=== PATIENT | male | born 1965 | race Caucasian/White ===

== ENCOUNTER 2023-09-15 11:15 | Inpatient (IN) | payer OTHER ==
[2023-09-15 11:58] VITALS: BMI 27.3
[2023-09-15] MEDS ORDERED: LOPERAMIDE HCL 2 MG CAPSULE PO ONE (12:44)
[2023-09-15] MEDS ORDERED: LOPERAMIDE HCL 2 MG CAPSULE ONE (13:02)
[2023-09-16] MEDS ORDERED: IBUPROFEN 600 MG TABLET (FP) PO PRN (01:07)
[2023-09-16] MEDS ORDERED: MAG HYDROX/AL HYDROX/SIMETH 30 ML UNIT-DOSE CUP PO PRN (01:07)
[2023-09-16] MEDS ORDERED: guaiFENesin 600 MG TABLET.ER (FP) PO PRN (01:07)
[2023-09-16] MEDS ORDERED: METHOCARBAMOL 500 MG TABLET PO PRN (01:07)
[2023-09-16] MEDS ORDERED: MAGNESIUM HYDROX 2400MG/30ML ORAL SUSPENSION 30 ML CUP PO PRN (01:07)
[2023-09-16] MEDS ORDERED: DICYCLOMINE HCL 10 MG CAPSULE PO PRN (01:07)
[2023-09-16] MEDS ORDERED: BENZONATATE 200 MG CAPSULE PO PRN (01:07)
[2023-09-16] MEDS ORDERED: ONDANSETRON *ODT* 4 MG TABLET SL PRN (01:07)
[2023-09-16] MEDS ORDERED: NALOXONE HCL (KLOXXADO) 8 MG SPRAY NS PRN (01:07)
[2023-09-16] MEDS ORDERED: POLYETHYLENE GLYCOL (HEALTHYLAX) 3350 17 GM PACKET PO PRN (01:07)
[2023-09-16] MEDS ORDERED: BISMUTH SUBSALICYLATE 524 MG/30 ML PO PRN (01:07)
[2023-09-16] MEDS ORDERED: LOPERAMIDE HCL 2 MG CAPSULE PO PRN (01:07)
[2023-09-16] MEDS ORDERED: BENZOCAINE/MENTHOL (CHLORASEPTIC ) LOZENGE MM PRN (01:07)
[2023-09-16] MEDS ORDERED: IBUPROFEN 400 MG TABLET (FP) PO PRN (01:07)
[2023-09-16] MEDS ORDERED: ACETAMINOPHEN 325 MG TABLET (FP) PO PRN (01:07)
[2023-09-16] MEDS ORDERED: NALOXONE HCL 0.4 MG/ML VIAL IM PRN (01:07)
[2023-09-16] MEDS ORDERED: LORazepam 1 MG TABLET PO PRN (09:37)
[2023-09-16] MEDS ORDERED: PRENATAL VITAMINS W/ FOLIC ACID TABLET (FP) PO SCH (10:00)
[2023-09-16] MEDS: LORazepam 2 MG TABLET PO SCH ×3 (10:53→23:25)
[2023-09-16 14:16] LABS: POTASSIUM 3.9 mmol/L (3.5-5.1)
[2023-09-16 14:18] LABS: ALBUMIN 2.4 g/dl (3.4-5.0); BLOOD UREA NITROGEN 12.4 mg/dL (7-18); CALCIUM 8.4 mg/dL (8.5-10.1)
[2023-09-16 14:20] LABS: CREATININE 1.5 mg/dL (0.55-1.3)
[2023-09-16 14:23] LABS: BILIRUBIN,TOTAL 0.9 mg/dL (0.2-1); TOT PROT 5.4 g/dl (6.4-8.2)
[2023-09-16 14:25] LABS: HEMOGLOBIN 10.8 GM/dL (11.7-16.9); MCH 34.5 pg (25.7-33.7); MCHC 33.7 g/dl (32.0-35.9); MEAN CELL VOLUME 102.5 fl (80-96); MEAN PLT VOLUME 7.5 fl (7.5-11.1); PLATELET COUNT 153 10^3/uL (134-434); RBC 3.12 M/mm3 (4.00-5.60); RDW 15.6 % (11.9-15.9)
[2023-09-16] MEDS ORDERED: MELATONIN 5 MG TABLETS PO SCH (22:00)
[2023-09-16] MEDS ORDERED: THIAMINE HCL 100 MG TABLET (FP) PO SCH (22:00)
[2023-09-17] MEDS: LORazepam 2 MG TABLET PO SCH ×2 (05:50→05:59)
[2023-09-17 09:59] VITALS: BP 102/62; PULSE 98; RESP 18; TEMP 97.7
[2023-09-18] MEDS ORDERED: LORazepam 1 MG TABLET PO SCH (05:00)
[2023-09-19] MEDS ORDERED: LORazepam 0.5 MG TABLET PO PRN
[2023-09-19] MEDS ORDERED: LORazepam 0.5 MG TABLET PO SCH (05:00)
[2023-09-20] MEDS ORDERED: LORazepam 0.5 MG TABLET PO ONE (05:00)
== END 2023-09-17 09:35 | disposition left against medical advice (07) | DRG 770 ==
LOC: YASAS 11:15 → Y6N 09-16 01:07
PROVIDERS: ADMIT Allergy & Immunology; ATTEND Surgery
PROC: HZ2ZZZZ Detoxification Services for Substance Abuse Treatment (ICD-10-PCS; principal; 2023-09-16)
DX: F10.230 Alcohol dependence with withdrawal, uncomplicated (principal); R29.6 Repeated falls; R26.0 Ataxic gait; Z99.89 Dependence on other enabling machines and devices; Z87.891 Personal history of nicotine dependence; Z91.041 Radiographic dye allergy status
CPT/HCPCS: 0241U-QW; 36415; 74176-TC; 80053; 80307; 83690; 85025; 85027; 85610; 86780; 93005; 93010; 93970-TC; 99285-25

== ENCOUNTER 2023-09-15 13:50 | Emergency (ER) | payer OTHER ==
[2023-09-15 14:17] VITALS: TEMP 97.6; BMI 27.3
[2023-09-15 15:47] LABS: BASO % 0.2 % (0-2.0); EOS % 0.8 % (0-4.5); HEMATOCRIT 33.6 % (35.4-49); HEMOGLOBIN 11.2 GM/dL (11.7-16.9); MCH 33.8 pg (25.7-33.7); MCHC 33.4 g/dl (32.0-35.9); MEAN CELL VOLUME 101.4 fl (80-96); MONO % 5.8 % (3.8-10.2); NEUT % 79.2 % (42.8-82.8); PLATELET COUNT 167 10^3/uL (134-434); RBC 3.31 M/mm3 (4.00-5.60); RDW 15.3 % (11.9-15.9); WHITE BLOOD COUNT 10.4 K/mm3 (4.0-10.0)
[2023-09-15 15:53] LABS: INR 1.22 (0.83-1.09); PROTHROMBIN TIME (PATIENT) 14.1 SEC (9.7-13.0)
[2023-09-15] MEDS ORDERED: IBUPROFEN 600 MG TABLET (FP) PO ONE ×2 (16:05→16:31)
[2023-09-15] MEDS ORDERED: ACETAMINOPHEN 500 MG TABLET (FP) PO ONE (16:05)
[2023-09-15 16:11] LABS: POTASSIUM 4.8 mmol/L (3.5-5.1)
[2023-09-15 16:13] LABS: ALBUMIN 2.5 g/dl (3.4-5.0); BLOOD UREA NITROGEN 6.9 mg/dL (7-18); CALCIUM 8.4 mg/dL (8.5-10.1)
[2023-09-15 16:18] LABS: BILIRUBIN,TOTAL 0.8 mg/dL (0.2-1); TOT PROT 5.8 g/dl (6.4-8.2)
[2023-09-15 16:27] LABS: CREATININE 0.7 mg/dL (0.55-1.3)
[2023-09-15] MEDS ORDERED: ACETAMINOPHEN 500 MG TABLET (FP) ONE (16:31)
[2023-09-15] MEDS ORDERED: METOCLOPRAMIDE HCL INJECTION 10 MG/2 ML VIAL IVPB ONE (20:21)
[2023-09-15] MEDS ORDERED: METOCLOPRAMIDE HCL INJECTION 10 MG/2 ML VIAL ONE (21:04)
[2023-09-16 00:03] VITALS: BP 106/58; PULSE 78; RESP 18
== END 2023-09-16 00:41 | disposition short-term general hospital (02) ==
LOC: JER 13:50
PROC: 3E033GC Introduction of Other Therapeutic Substance into Peripheral Vein, Percutaneous Approach (ICD-10-PCS; principal; 2023-09-15)
DX: R51.9 Headache, unspecified (principal); R10.9 Unspecified abdominal pain; R11.2 Nausea with vomiting, unspecified; R25.1 Tremor, unspecified; R20.2 Paresthesia of skin; R19.7 Diarrhea, unspecified; R63.0 Anorexia; L53.9 Erythematous condition, unspecified; F10.29 Alcohol dependence with unspecified alcohol-induced disorder; Z20.822 Contact with and (suspected) exposure to COVID-19
CPT/HCPCS: 0241U-QW; 36415; 74176-TC; 80053; 83690; 85025; 85610; 93005; 93010; 93970-TC; 99285-25